=== PATIENT | male | born 1955 | race Two or more races ===

== ENCOUNTER 2021-02-11 08:44 | Emergency (ER) | payer MEDICARE, OTHER ==
[~2021-02-11] VITALS: Ht 172.7 cm; Wt 81.6 kg
[2021-02-11 08:50] VITALS: BP 152/67
--- NOTE | 2021-02-11 08:50 | NUR ---
BIBSELF C/O LEFT SHOULDER PAIN [id number], "I WANT XRAY TO FIND OUT WHAT'S HAPPENING." BLOOD PRESSURE IS ELEVATED, DR ACUNA AWARE. BREATHING IS EVEN AND UNLABORED. PT'S IS AT BEDISDE.
--- NOTE | 2021-02-11 08:52 | NUR ---
DR ACUNA AT BEDSIDE
--- NOTE | 2021-02-11 09:43 | NUR ---
ULTRASOUND AT BEDSIDE
[2021-02-11] MEDS ORDERED: HYDROCODONE/APAP 10/325MG TABLET PO ONE (10:00)
[2021-02-11] MEDS ORDERED: HYDROCODONE/APAP 10/325MG TABLET ONE (10:01)
--- NOTE | 2021-02-11 10:18 | NUR ---
X RAY AT BEDSIDE
[2021-02-11] MEDS ORDERED: NAPR-1164 PO (10:41)
[2021-02-11] MEDS ORDERED: TRAM50TA2 PO (10:41)
--- NOTE | 2021-02-11 10:48 | NUR ---
Patient discharged to home in stable condition. Written and verbal after care instructions given. Patient verbalizes understanding of instruction.
== END 2021-02-11 10:49 | disposition home or self-care (01) ==
LOC: ER 08:56
DX: M25.512 Pain in left shoulder (principal); R91.8 Other nonspecific abnormal finding of lung field
CPT/HCPCS: 71045-TC; 73030-TC; 93971-TC

== ENCOUNTER 2021-04-14 10:03 | Emergency (ER) | payer MEDICARE, OTHER ==
[~2021-04-14] VITALS: Ht 172.7 cm; Wt 97.5 kg
[~2021-04-14 10:03] MED LIST: NAPR-1164 PO; TRAM50TA2 PO
[2021-04-14 10:12] VITALS: BP 138/59
--- NOTE | 2021-04-14 10:30 | NUR ---
AT BEDSIDE FOR EVAL.
[2021-04-14] MEDS ORDERED: NAPR500T6 PO (10:48)
--- NOTE | 2021-04-14 10:58 | NUR ---
Patient discharged to home in stable condition. Written and verbal after care instructions given. Patient verbalizes understanding of instruction.
== END 2021-04-14 10:58 | disposition home or self-care (01) ==
LOC: ER 10:06
DX: M25.461 Effusion, right knee (principal); M25.561 Pain in right knee; Z98.890 Other specified postprocedural states